=== PATIENT | male | born 1965 | race Caucasian/White ===

== ENCOUNTER 2017-02-15 13:03 | Inpatient (IN) | payer OTHER ==
[~2017-02-15] VITALS: Ht 165.1 cm; Wt 52.6 kg
--- NOTE | ~2017-02-15 | O ---
[place], [place] OPERATIVE NOTE NAME: JUAREZ ALBARADO [facility] [id number] UNIT #: [id number] ROOM: 405 DOCTOR: EDILBERTO BENNETT MD BIRTHDATE: [birth year] DOS: 02/16/2017 PREOPERATIVE DIAGNOSIS: Obstructed left proximal ureteral calculus. POSTOPERATIVE DIAGNOSIS: Obstructed left proximal ureteral calculus. PROCEDURE: Cystoscopy, retrograde pyelogram, placement of the ureteral stent. FINDINGS: A retrograde showed a complete visualization of the ureter with a filling defect in the left proximal at the UP junction suggestive for obstructive ureteral calculus. DESCRIPTION OF PROCEDURE: After obtaining satisfactory sedation, the patient was placed in lithotomy position. Genitalia was prepped and draped in sterile manner. A 21 ACMI scope was placed into bladder. Both ureteral orifices located in the normal location. The left orifice was then cannulated with a size 6 open-ended catheter. Contrast injected and entire ureter was identified and delineated with a filling defect in the left renal pelvis. The 0.35 guidewire was then placed into the ureter, which was deployed all the way up into the upper calyx. I then deployed size 6-Libyan 26 cm ureteral stent over the guidewire. The stent was seen very well pigtailing into the renal pelvis and the bladder. The patient tolerated the procedure very well. Guidewire, cystoscope was removed. He was then recovered from sedation and was transferred to recovery room in satisfactory condition. EDILBERTO BENNETT MD CM:OPRECORD:OPERATIVE NOTE [id number] EDILBERTO BENNETT MD 02/16/17 1549 interface
[~2017-02-15 13:03] MED LIST: ANAPROX DS550 MG PO; KEFLEX500 MG PO; MOTRIN800 MG PO; NO DAILY MEDS; TOBRADEX 0.1%-0.5 ML OPH; ULTRAM50 MG PO; VICODIN 5/500 505 MG PO; VOLTAREN75 MG PO
[2017-02-15 13:11] VITALS: BP 120/73
[2017-02-15 13:26] LABS: BILIRUBIN 1+ (NEGATIVE); BLOOD 3+ (NEGATIVE); CLARITY CLOUDY (CLEAR); COLOR YELLOW (YELLOW); GLUCOSE NEGATIVE (NEGATIVE); KETONE 3+ (NEGATIVE); LEUKO ESTERASE 3+ (NEGATIVE); NITRITE POSITIVE (NEGATIVE); PROTEIN 2+ (NEGATIVE); SPECIFIC GRAVITY 1.015 (1.005-1.030)
[2017-02-15 13:42] LABS: BACTERIA 4+; URINE REFLEX COMMENT YES (NO); WBC TNTC wbc/hpf (0-5)
[2017-02-15 14:03] LABS: BASO # 0.1 10*3/uL (0.0-0.1); BASO % 0.4 % (0.0-1.0); EOS # 0.1 10*3/uL (0.0-0.4); EOS % 0.3 % (1.0-4.0); HEMATOCRIT 46.1 % (42.0-52.0); IG # 0.1 10*3/uL (0.0-0.1); LYMPH # 1.5 10*3/uL (1.3-4.4); LYMPH % 8.2 % (27.0-41.0); MEAN CORPUSCULAR HGB 34.7 pg (27.0-31.0); MEAN CORPUSCULAR HGB CONC 34.7 g/dl (33.0-37.0); MEAN PLATELET VOLUME 9.1 fl (9.6-12.3); MONO # 1.3 10*3/uL (0.1-1.0); MONO % 7.4 % (3.0-9.0); NEUT # 14.9 10*3/uL (2.3-7.9); PLATELET COUNT AUTOMATED 218 10*3/uL (130-400); RED BLOOD COUNT 4.61 10*6/uL (4.50-5.90); RED CELL DISTRI WIDTH 13.3 % (0-14.5); WHITE BLOOD COUNT 17.9 10*3/uL (4.8-10.8)
[2017-02-15 14:18] LABS: ALBUMIN 3.9 gm/dl (3.1-4.5); ALKALINE PHOSPHATASE 66 U/L (45-117); BUN 7 mg/dl (7-24); CARBON DIOXIDE 28 mmol/L (21-32); CHLORIDE 98 mmol/L (98-107); EST GLOM FILT AFRICAN AMERICAN > 60 ml/min; GLUCOSE 91 mg/dL (65-99); POTASSIUM 4.5 mmol/L (3.5-5.1); SGOT/AST 15 IU/L (3-35); SGPT/ALT 15 U/L (12-78); SODIUM 134 mmol/L (136-145); TOTAL PROTEIN 8.2 gm/dL (6.4-8.2)
[2017-02-15 17:12] VITALS: BP 118/68
[2017-02-15 17:30] VITALS: BP 113/76
[2017-02-15 18:02] LABS: CPK 55 U/L (39-308)
[2017-02-15 18:04] LABS: CKMB < 0.5 ng/ml (0.5-3.6); TROPONIN I < 0.015 ng/ml (<0.045)
[2017-02-15 20:00] VITALS: BP 102/65
[2017-02-16] VITALS (9 sets, daily range): BP systolic 99–132; BP diastolic 59–89
[2017-02-16 00:46] LABS: CKMB < 0.5 ng/ml (0.5-3.6); CPK 44 U/L (39-308); TROPONIN I < 0.015 ng/ml (<0.045)
[2017-02-16 06:33] LABS: BASO # 0.1 10*3/uL (0.0-0.1); BASO % 0.3 % (0.0-1.0); EOS # 0.1 10*3/uL (0.0-0.4); EOS % 0.5 % (1.0-4.0); IG # 0.1 10*3/uL (0.0-0.1); LYMPH # 1.4 10*3/uL (1.3-4.4); LYMPH % 9.4 % (27.0-41.0); MEAN CELL VOLUME 100.5 fl (80.0-94.0); MEAN CORPUSCULAR HGB 33.7 pg (27.0-31.0); MEAN CORPUSCULAR HGB CONC 33.5 g/dl (33.0-37.0); MEAN PLATELET VOLUME 9.4 fl (9.6-12.3); MONO # 1.3 10*3/uL (0.1-1.0); MONO % 9.1 % (3.0-9.0); NEUT # 11.8 10*3/uL (2.3-7.9); NEUT % 80.2 % (47.0-73.0); PLATELET COUNT AUTOMATED 177 10*3/uL (130-400); RED BLOOD COUNT 3.83 10*6/uL (4.50-5.90); RED CELL DISTRI WIDTH 13.2 % (0-14.5); WHITE BLOOD COUNT 14.7 10*3/uL (4.8-10.8)
[2017-02-16 06:35] LABS: HEMATOCRIT 38.5 % (42.0-52.0); HEMOGLOBIN 12.9 g/dl (14.0-18.0)
[2017-02-16 06:44] LABS: CKMB < 0.5 ng/ml (0.5-3.6); CPK 43 U/L (39-308); TROPONIN I < 0.015 ng/ml (<0.045)
[2017-02-16 07:05] LABS: ALBUMIN 2.8 gm/dl (3.1-4.5); ALKALINE PHOSPHATASE 51 U/L (45-117); BILIRUBIN, TOTAL 0.5 mg/dl (0.2-1.0); BUN 9 mg/dl (7-24); CARBON DIOXIDE 24 mmol/L (21-32); CHLORIDE 101 mmol/L (98-107); CHOLESTEROL 101 mg/dL (<200); EST GLOM FILT AFRICAN AMERICAN > 60 ml/min; FREE T4 0.93 ng/dl (0.76-1.46); GLUCOSE 86 mg/dL (65-99); HDL CHOLESTEROL 64 mg/dl (40-60); LDL CHOLESTEROL 24 mg/dL (9-159); MAGNESIUM 1.6 mg/dL (1.5-2.1); PHOSPHOROUS 1.5 mg/dL (2.5-4.9); POTASSIUM 4.1 mmol/L (3.5-5.1); SGOT/AST 13 IU/L (3-35); SGPT/ALT 11 U/L (12-78); SODIUM 135 mmol/L (136-145); TOTAL PROTEIN 6.3 gm/dL (6.4-8.2); TRIGLYCERIDES 67 mg/dl (<150); VLDL CHOLESTEROL 13 mg/dL (6-40)
[2017-02-16 07:06] LABS: INTERNATIONAL NORM RATIO 1.1 (2.0-3.5); PROTHROMBIN TIME 11.4 SECONDS (9.0-12.4)
[2017-02-16 07:41] LABS: FOLIC ACID 7.11 ng/mL (>5.38)
[2017-02-16 08:26] LABS: VITAMIN D, 25-HYDROXY 5.8 ng/mL (30-100)
[2017-02-17] VITALS: BP 106/62
[2017-02-17 06:48] LABS: BASO # 0.1 10*3/uL (0.0-0.1); BASO % 0.5 % (0.0-1.0); EOS # 0.1 10*3/uL (0.0-0.4); EOS % 1.4 % (1.0-4.0); HEMATOCRIT 35.7 % (42.0-52.0); HEMOGLOBIN 12.1 g/dl (14.0-18.0); IG # 0.1 10*3/uL (0.0-0.1); LYMPH # 1.4 10*3/uL (1.3-4.4); LYMPH % 13.8 % (27.0-41.0); MEAN CELL VOLUME 100.8 fl (80.0-94.0); MEAN CORPUSCULAR HGB 34.2 pg (27.0-31.0); MEAN CORPUSCULAR HGB CONC 33.9 g/dl (33.0-37.0); MEAN PLATELET VOLUME 9.5 fl (9.6-12.3); MONO # 1.2 10*3/uL (0.1-1.0); MONO % 11.4 % (3.0-9.0); NEUT # 7.3 10*3/uL (2.3-7.9); NEUT % 72.3 % (47.0-73.0); PLATELET COUNT AUTOMATED 177 10*3/uL (130-400); RED BLOOD COUNT 3.54 10*6/uL (4.50-5.90); RED CELL DISTRI WIDTH 12.9 % (0-14.5); WHITE BLOOD COUNT 10.1 10*3/uL (4.8-10.8)
[2017-02-17 07:20] LABS: BUN 7 mg/dl (7-24); CARBON DIOXIDE 25 mmol/L (21-32); CHLORIDE 100 mmol/L (98-107); EST GLOM FILT AFRICAN AMERICAN > 60 ml/min; GLUCOSE 107 mg/dL (65-99); PHOSPHOROUS 1.9 mg/dL (2.5-4.9); POTASSIUM 3.7 mmol/L (3.5-5.1); SODIUM 134 mmol/L (136-145)
[2017-02-17 08:00] VITALS: BP 110/68
[2017-02-17 12:00] VITALS: BP 106/70
[2017-02-17 16:00] VITALS: BP 118/67
[2017-02-17 20:00] VITALS: BP 120/67; BP 121/70
[2017-02-18] VITALS: BP 115/68
[2017-02-18 08:00] VITALS: BP 108/70
[2017-02-18 12:00] VITALS: BP 116/70
[2017-02-18] MEDS ORDERED: VITAMIN D50000 I3 PO (13:10)
[2017-02-18] MEDS ORDERED: B12,B-12,B 12500 MC1 PO (13:10)
[2017-02-18] MEDS ORDERED: PERCOCET 325 MG1 TA2 PO (13:10)
[2017-02-18] MEDS ORDERED: LEVOFLOXACIN500 MG PO (13:10)
== END 2017-02-18 15:13 | disposition home or self-care (01) | DRG 871 ==
LOC: ED 13:03 → EDHOLD 16:49 → 4E 16:49
PROVIDERS: Emergency Medicine; Internal Medicine; Registered Nurse
PROC: 0T778DZ Dilation of Left Ureter with Intraluminal Device, Via Natural or Artificial Opening Endoscopic (ICD-10-PCS; principal; 2017-02-16)
DX: A41.9 Sepsis, unspecified organism (principal); E43 Unspecified severe protein-calorie malnutrition; R82.2 Biliuria; E87.1 Hypo-osmolality and hyponatremia; N13.4 Hydroureter; N39.0 Urinary tract infection, site not specified; Z68.1 Body mass index [BMI] 19.9 or less, adult; R31.9 Hematuria, unspecified; N20.0 Calculus of kidney; F10.10 Alcohol abuse, uncomplicated; R80.9 Proteinuria, unspecified; E55.9 Vitamin D deficiency, unspecified; E53.8 Deficiency of other specified B group vitamins; F17.210 Nicotine dependence, cigarettes, uncomplicated; N45.1 Epididymitis

== ENCOUNTER 2018-05-03 17:34 | Emergency (ER) | payer OTHER ==
[~2018-05-03] VITALS: Wt 52.6 kg
[~2018-05-03 17:34] MED LIST changes: +B12,B-12,B 12500 MC1 PO; +LEVOFLOXACIN500 MG PO; +PERCOCET 325 MG1 TA2 PO; +VITAMIN D50000 I3 PO
[2018-05-03] MEDS ORDERED: IBUPROFEN600 MG PO (20:29)
== END 2018-05-03 20:45 | disposition home or self-care (01) ==
LOC: ED 17:34
DX: S46.912A Strain of unspecified muscle, fascia and tendon at shoulder and upper arm level, left arm, initial encounter (principal); F17.200 Nicotine dependence, unspecified, uncomplicated; Z79.899 Other long term (current) drug therapy; X50.0XXA Overexertion from strenuous movement or load, initial encounter; Y93.89 Activity, other specified; Y92.099 Unspecified place in other non-institutional residence as the place of occurrence of the external cause; Y99.9 Unspecified external cause status

== ENCOUNTER 2019-10-23 10:16 | Inpatient (IN) | payer OTHER ==
[~2019-10-23] VITALS: Ht 162.5 cm; Wt 52.6 kg
[~2019-10-23 10:16] MED LIST changes: +IBUPROFEN600 MG PO
[2019-10-23 10:18] VITALS: BP 110/66
[2019-10-23 11:03] LABS: HEMATOCRIT 51.8 % (42.0-52.0); HEMOGLOBIN 17.8 g/dl (14.0-18.0); MEAN CORPUSCULAR HGB CONC 34.4 g/dl (33.0-37.0); MEAN PLATELET VOLUME 9.5 fl (9.6-12.3); PLATELET COUNT AUTOMATED 125 10*3/uL (130-400); RED BLOOD COUNT 5.08 10*6/uL (4.50-5.90); RED CELL DISTRI WIDTH 12.2 % (0-14.5); WHITE BLOOD COUNT 10.7 10*3/uL (4.8-10.8)
[2019-10-23 11:11] LABS: ACT PARTIAL THROMBO TIME 33.3 SECONDS (20.0-32.1)
[2019-10-23 11:18] LABS: ALBUMIN 3.9 gm/dl (3.1-4.5); ALKALINE PHOSPHATASE 52 U/L (45-117); BUN 25 mg/dl (7-24); CHLORIDE 104 mmol/L (98-107); CREATININE 2.34 mg/dL (0.70-1.30); LIPASE 123 U/L (73-393); POTASSIUM 3.8 mmol/L (3.5-5.1); SGOT/AST 36 IU/L (3-35); SGPT/ALT 28 U/L (12-78); SODIUM 133 mmol/L (136-145); TOTAL PROTEIN 8.7 gm/dL (6.4-8.2)
[2019-10-23 11:21] LABS: PLATELET SUFFICIENCY LOW (NORMAL); TOTAL CELLS COUNTED 100 #CELLS; TROPONIN I < 0.015 ng/ml (<0.045)
[2019-10-23 12:59] LABS: BILIRUBIN 1+ (NEGATIVE); BLOOD TRACE-INTACT (NEGATIVE); CLARITY CLOUDY (CLEAR); COLOR YELLOW (YELLOW); GLUCOSE NEGATIVE (NEGATIVE); KETONE NEGATIVE (NEGATIVE); LEUKO ESTERASE NEGATIVE (NEGATIVE); NITRITE POSITIVE (NEGATIVE); PH 5.5 (5.0-9.0); SPECIFIC GRAVITY >= 1.030 (1.005-1.030); UROBILINOGEN 0.2 E.U./dl (0.2-1.0)
--- NOTE | 2019-10-23 12:59 | NUR ---
PT DOES NOT TAKE ANY HOME MEDS.
[2019-10-23 13:27] VITALS: BP 93/57
[2019-10-23 13:41] LABS: BACTERIA 4+; HYALINE CAST TNTC; MUCOUS 3+
--- NOTE | 2019-10-23 15:09 | NUR ---
DR. WHITE NOTIFIED IN PERSON OF CONSULT.
[2019-10-23 20:00] VITALS: BP 104/69
[2019-10-24] VITALS: BP 115/68
--- NOTE | 2019-10-24 00:29 | NUR ---
Patient resting quietly with no c/o discomfort. Respirations easy and regular. Vital signs stable. No overt distress. GUILLERMO VALLEJO
--- NOTE | 2019-10-24 05:18 | NUR ---
JUAREZ ALBARADO [id number] Please refer to the physician's history and physical for past medical history, comorbid conditions, and allergies. Diagnosis: KAILEY INFLUENZA B Kvng Score: 21,LOW OR NO RISK WOUND DESCRIPTIONS: Wound Number: 1 Location of the wound: right thumb Type of wound: traumatic Thickness: Full Size: 1.5cm x 1.2cm x 0.1cm Tunneling: none Undermining: none Sinus Tract: none Presence of Exudate: none Amount: None Color: Red, brown Odor: None Periwound Skin Appearance: Erythema Wound edges: approximated Pain (associated with wound): tender to touch How does patient state this happened? pt stated he was bit by his rooster he stated the previous lab engineer warned him about that Surface the patient is resting on: Isoflex SKIN PREVENTION RECOMMENDATION: 1. Pressure redistribution support surface as appropriate 2. Elevate heels 3. Remove boots/TEDS every shift and reapply 4. Head of bed 30 degrees as tolerated 5. Assess nutrition and hydration 6. Manage moisture 7. Avoid the use of containment devices while in bed 8. Use absorptive products on surfaces limit layers of linens on bed 9. Turn and reposition every 1-2 hours in bed and every 1 hour in chair as tolerated 10. Weight shifts every 15 minutes while up in chair 11. Offloading with pillows or device to keep heels elevated off bed 12. Monitor skin at least every shift 13. Inspect under medical devices twice a day WOUND TREATMENT RECOMMENDATIONS: Cleanse right thumb with nss and apply bactroban ointment tid and cover with bandaid. Patient stated he will care for this area when he returns home like he did prior to coming here.
[2019-10-24 06:12] LABS: BASO % 0.5 % (0.0-1.0); EOS # 0.2 10*3/uL (0.0-0.4); EOS % 2.4 % (1.0-4.0); HEMATOCRIT 40.9 % (42.0-52.0); HEMOGLOBIN 13.7 g/dl (14.0-18.0); LYMPH % 15.2 % (27.0-41.0); MEAN CELL VOLUME 102.5 fl (80.0-94.0); MEAN CORPUSCULAR HGB 34.3 pg (27.0-31.0); MEAN CORPUSCULAR HGB CONC 33.5 g/dl (33.0-37.0); MEAN PLATELET VOLUME 9.7 fl (9.6-12.3); MONO # 0.7 10*3/uL (0.1-1.0); MONO % 10.2 % (3.0-9.0); NEUT # 4.8 10*3/uL (2.3-7.9); NEUT % 71.4 % (47.0-73.0); PLATELET COUNT AUTOMATED 103 10*3/uL (130-400); RED BLOOD COUNT 3.99 10*6/uL (4.50-5.90); RED CELL DISTRI WIDTH 12.2 % (0-14.5); WHITE BLOOD COUNT 6.7 10*3/uL (4.8-10.8)
[2019-10-24 06:41] LABS: ALBUMIN 2.7 gm/dl (3.1-4.5); ALKALINE PHOSPHATASE 42 U/L (45-117); BUN 20 mg/dl (7-24); CHLORIDE 113 mmol/L (98-107); CHOLESTEROL 88 mg/dL (<200); CREATININE 1.16 mg/dL (0.70-1.30); FREE T4 0.81 ng/dl (0.76-1.46); HDL CHOLESTEROL 37 mg/dl (40-60); LDL CHOLESTEROL 35 mg/dL (9-159); PHOSPHOROUS 2.8 mg/dL (2.5-4.9); SGOT/AST 25 IU/L (3-35); SGPT/ALT 20 U/L (12-78); SODIUM 141 mmol/L (136-145); TOTAL PROTEIN 6.2 gm/dL (6.4-8.2); TRIGLYCERIDES 81 mg/dl (<150); VLDL CHOLESTEROL 16 mg/dL (6-40)
[2019-10-24 07:42] VITALS: BP 116/68
--- NOTE | 2019-10-24 07:55 | NUR ---
VITALS STABLE. SANDIE. A&OX3. EQUAL PEST CONTROL APPLICATOR. HEART SOUNDS NORMAL. RHONCHI MID RIGHT LUNG, CLEARED WITH COUGH. LEFT LUNG CLEAR THROUGHOUT. ACTIVE BSX4, ABD NON TENDER NON DISTENDED, SOFT. PPP. <3 CAPILLARY REFILL. SKIN PINK WARM AND DRY. PT HAS AN UNOPENED SCABBED AREA ON RIGHT THUMB, NO DRAINAGE, NO SIGNS OF INFECTION. PT STATED "MY ROOSTER BIT ME". INSTRUCTED NOT TO PICK AT SCABS.IV SITE INTACT, PATENT, NO REDNESS OR SWELLING. NO COMPLAINTS OF PAIN AT THIS TIME. WILL CONTINUE TO JOSE TRUONG, SPJOSECC
[2019-10-24 08:09] LABS: VITAMIN D, 25-HYDROXY 10.3 ng/mL (30-100)
--- NOTE | 2019-10-24 10:00 | NUR ---
RIGHT THUMB CLEANED WITH NORMAL SALINE, MUPIROCIN 2% OINTMENT APPLIED TO RIGHT THUMB, COVERED WITH OPTIFOAM. TOLERATED WELL. WILL CONTINUE TO ASSESS. TOI SCOTT
--- NOTE | 2019-10-24 11:46 | NUR ---
PT WATCHING TV, WAITING FOR LUNCH TO ARRIVE. WILL CONTINUE TO ASSESS. JOSE VALDEZ, ISAIASCC
[2019-10-24 11:57] VITALS: BP 136/84
--- NOTE | 2019-10-24 13:16 | NUR ---
PATIENT IS SITTING
--- NOTE | 2019-10-24 13:17 | NUR ---
General Manager Food in to talk to patient. Patient states lives at HOME with FRIEND. There are NO steps in the home. Physician: NONE Pharmacy: [facility] [place] [facility]: NONE Patient's level of ADLs: INDEPENDENT Patient has working utilities: YES DME: NONE Follow-up physician's appointment after d/c: WILL FIND ONE AND MAKE APPOINTMENT AFTER DISCHARGE Does patient want to access PORTAL?: NO Discharge plan PT LIVES AT HOME WITH FRIEND AND IS INDEPENDENT IN HIS CARE. DENIES HE WILL HAVE ANY NEEDS ON DISCHARGE. PLANS TO RETURN HOME WHEN MEDICALLY STABLE. WILL CONTINUE TO FOLLOW. STATES HE WILL HAVE A RIDE HOME.. SHUKRI HICKS
[2019-10-24] MEDS ORDERED: TAMIFLU 75MG CA75 MG PO (14:03)
--- NOTE | 2019-10-24 14:45 | NUR ---
PT REQUESTED TO LEAVE AND SIGNED OUT AGAINST MEDICAL ADVICE. TAMIFLU PRESCRIPTION SENT TO PHARMACY. PATIENT AWARE. ARSH OLIVIA.
== END 2019-10-24 14:45 | disposition left against medical advice (07) | DRG 463 ==
LOC: ED 10:16 → 5E 12:43 → EDHOLD 12:43 → 5E 13:51
PROVIDERS: Nurse Practitioner Family; Registered Nurse; ADMIT Internal Medicine
DX: N30.01 Acute cystitis with hematuria (principal); J10.1 Influenza due to other identified influenza virus with other respiratory manifestations; N17.0 Acute kidney failure with tubular necrosis; F17.210 Nicotine dependence, cigarettes, uncomplicated; E87.1 Hypo-osmolality and hyponatremia; R80.9 Proteinuria, unspecified; R74.0 Nonspecific elevation of levels of transaminase and lactic acid dehydrogenase [LDH]; F10.10 Alcohol abuse, uncomplicated; I95.9 Hypotension, unspecified; Z53.29 Procedure and treatment not carried out because of patient's decision for other reasons; T39.395A Adverse effect of other nonsteroidal anti-inflammatory drugs [NSAID], initial encounter; Y92.89 Other specified places as the place of occurrence of the external cause

== ENCOUNTER 2020-06-24 11:38 | Emergency (ER) | payer OTHER ==
[~2020-06-24] VITALS: Ht 162.5 cm; Wt 52.6 kg
[~2020-06-24 11:38] MED LIST changes: +TAMIFLU 75MG CA75 MG PO
[2020-06-24] MEDS ORDERED: AMOXICILLIN500 M2 PO (12:30)
[2020-06-24] MEDS ORDERED: CLINDAMYCIN HC300 MG PO (12:30)
[2020-06-24] MEDS ORDERED: Motrin,Rufen800 MG PO (12:30)
== END 2020-06-24 12:47 | disposition home or self-care (01) ==
LOC: ED 11:38
DX: K02.9 Dental caries, unspecified (principal)

== ENCOUNTER 2021-05-13 11:32 | Emergency (ER) | payer OTHER ==
[~2021-05-13] VITALS: Ht 162.5 cm; Wt 52.6 kg
[~2021-05-13 11:32] MED LIST changes: +AMOXICILLIN500 M2 PO; +CLINDAMYCIN HC300 MG PO; +Motrin,Rufen800 MG PO
[2021-05-13 12:12] LABS: BASO # 0.1 10*3/uL (0.0-0.1); BASO % 0.6 % (0.0-1.0); EOS # 0.1 10*3/uL (0.0-0.4); EOS % 1.2 % (1.0-4.0); LYMPH # 0.9 10*3/uL (1.3-4.4); LYMPH % 10.6 % (27.0-41.0); MEAN CORPUSCULAR HGB 34.9 pg (27.0-31.0); MEAN CORPUSCULAR HGB CONC 34.9 g/dl (33.0-37.0); MEAN PLATELET VOLUME 9.4 fl (9.6-12.3); MONO # 0.4 10*3/uL (0.1-1.0); MONO % 5.2 % (3.0-9.0); NEUT % 82.2 % (47.0-73.0); PLATELET COUNT AUTOMATED 139 10*3/uL (130-400); RED CELL DISTRI WIDTH 12.4 % (0-14.5); WHITE BLOOD COUNT 8.5 10*3/uL (4.8-10.8)
[2021-05-13 12:28] LABS: ALBUMIN 3.3 gm/dl (3.1-4.5); ALKALINE PHOSPHATASE 67 U/L (45-117); BUN 16 mg/dl (7-24); CHLORIDE 100 mmol/L (98-107); CREATININE 1.18 mg/dL (0.70-1.30); LIPASE 75 U/L (73-393); POTASSIUM 3.8 mmol/L (3.5-5.1); SODIUM 126 mmol/L (136-145); TOTAL PROTEIN 7.2 gm/dL (6.4-8.2)
[2021-05-13 12:41] LABS: SGOT/AST 2350 IU/L (3-35); SGPT/ALT 1543 U/L (12-78)
[2021-05-13 13:17] LABS: BILIRUBIN 2+ (Negative); BLOOD 1+ (Negative); CLARITY Clear (Clear); COLOR Red (Yellow); GLUCOSE Negative (Negative); KETONE Trace (Negative); LEUKO ESTERASE 1+ (Negative); NITRITE Positive (Negative); PH 5.5 (4.5-8.0)
[2021-05-13 13:38] LABS: BACTERIA TRACE; RBC 16-20 rbc/hpf (0-2); WBC 0-2 wbc/hpf (0-5)
== END 2021-05-13 19:25 | disposition short-term general hospital (02) ==
LOC: ED 11:32
PROVIDERS: Physician Assistant
DX: N13.2 Hydronephrosis with renal and ureteral calculous obstruction (principal); R74.01 Elevation of levels of liver transaminase levels; F17.210 Nicotine dependence, cigarettes, uncomplicated; Z87.442 Personal history of urinary calculi; Z79.2 Long term (current) use of antibiotics; Z79.899 Other long term (current) drug therapy; Z98.890 Other specified postprocedural states

== ENCOUNTER 2021-11-11 16:11 | Observation (INO) | payer OTHER ==
[~2021-11-11] VITALS: Wt 52.6 kg
[2021-11-11 16:11] VITALS: BP 171/95
[2021-11-11 16:44] LABS: BASO # 0.1 10*3/uL (0.0-0.1); BASO % 1.2 % (0.0-1.0); EOS # 0.1 10*3/uL (0.0-0.4); EOS % 2.1 % (1.0-4.0); HEMATOCRIT 43.7 % (42.0-52.0); LYMPH # 1.4 10*3/uL (1.3-4.4); LYMPH % 21.1 % (27.0-41.0); MEAN CELL VOLUME 100.2 fl (80.0-94.0); MEAN CORPUSCULAR HGB 34.4 pg (27.0-31.0); MEAN CORPUSCULAR HGB CONC 34.3 g/dl (33.0-37.0); MEAN PLATELET VOLUME 9.1 fl (9.6-12.3); MONO # 0.7 10*3/uL (0.1-1.0); MONO % 10.8 % (3.0-9.0); NEUT # 4.3 10*3/uL (2.3-7.9); NEUT % 64.5 % (47.0-73.0); PLATELET COUNT AUTOMATED 177 10*3/uL (130-400); RED BLOOD COUNT 4.36 10*6/uL (4.50-5.90); RED CELL DISTRI WIDTH 12.3 % (0-14.5); WHITE BLOOD COUNT 6.6 10*3/uL (4.8-10.8)
[2021-11-11 16:56] LABS: ACT PARTIAL THROMBO TIME 28.7 SECONDS (20.0-32.1)
[2021-11-11 17:01] LABS: ALBUMIN 3.5 gm/dl (3.1-4.5); ALKALINE PHOSPHATASE 67 U/L (45-117); BUN 8 mg/dl (7-24); CHLORIDE 103 mmol/L (98-107); CREATININE 1.02 mg/dL (0.70-1.30); LIPASE 160 U/L (73-393); POTASSIUM 3.8 mmol/L (3.5-5.1); SGOT/AST 36 IU/L (3-35); SGPT/ALT 34 U/L (12-78); SODIUM 134 mmol/L (136-145); TOTAL PROTEIN 7.7 gm/dL (6.4-8.2)
[2021-11-11 17:10] VITALS: BP 170/94
[2021-11-11 18:00] VITALS: BP 170/90
[2021-11-11 19:41] VITALS: BP 160/92
[2021-11-12 00:22] VITALS: BP 137/70
[2021-11-12 03:55] VITALS: BP 156/93
[2021-11-12 05:14] LABS: ALBUMIN 3.1 gm/dl (3.1-4.5); BUN 9 mg/dl (7-24); CHLORIDE 104 mmol/L (98-107); CHOLESTEROL 150 mg/dL (<200); CREATININE 0.92 mg/dL (0.70-1.30); POTASSIUM 3.9 mmol/L (3.5-5.1); SGOT/AST 31 IU/L (3-35); SGPT/ALT 29 U/L (12-78); SODIUM 136 mmol/L (136-145); TOTAL PROTEIN 7.2 gm/dL (6.4-8.2); TRIGLYCERIDES 68 mg/dl (<150)
[2021-11-12 05:21] LABS: ALKALINE PHOSPHATASE 58 U/L (45-117); FREE T4 0.76 ng/dl (0.76-1.46); LDL CHOLESTEROL 38 mg/dL (9-159)
[2021-11-12 06:02] LABS: BASO # 0.1 10*3/uL (0.0-0.1); BASO % 1.7 % (0.0-1.0); EOS # 0.3 10*3/uL (0.0-0.4); EOS % 4.7 % (1.0-4.0); HEMATOCRIT 45.5 % (42.0-52.0); LYMPH # 1.8 10*3/uL (1.3-4.4); LYMPH % 30.8 % (27.0-41.0); MEAN CELL VOLUME 102.5 fl (80.0-94.0); MEAN CORPUSCULAR HGB 35.1 pg (27.0-31.0); MEAN CORPUSCULAR HGB CONC 34.3 g/dl (33.0-37.0); MEAN PLATELET VOLUME 9.7 fl (9.6-12.3); MONO # 0.8 10*3/uL (0.1-1.0); MONO % 13.6 % (3.0-9.0); NEUT # 2.8 10*3/uL (2.3-7.9); PLATELET COUNT AUTOMATED 179 10*3/uL (130-400); RED BLOOD COUNT 4.44 10*6/uL (4.50-5.90); RED CELL DISTRI WIDTH 12.4 % (0-14.5); WHITE BLOOD COUNT 5.7 10*3/uL (4.8-10.8)
[2021-11-12 07:40] VITALS: BP 139/78
[2021-11-12 07:41] LABS: VITAMIN D, 25-HYDROXY 16.1 ng/mL (30-100)
[2021-11-12 11:20] VITALS: BP 161/98
[2021-11-12] MEDS ORDERED: ZESTRIL40 MG PO (12:47)
[2021-11-12] MEDS ORDERED: LIPITOR80 MG PO (12:47)
[2021-11-12] MEDS ORDERED: Clopidogrel75 MG PO (12:47)
[2021-11-12] MEDS ORDERED: ASPIRIN81 M1 PO (12:47)
[2021-11-12 13:29] VITALS: BP 128/87
== END 2021-11-12 18:02 | disposition home or self-care (01) ==
LOC: ED 16:11 → EDHOLD 19:07
PROVIDERS: Emergency Medicine; Internal Medicine; ADMIT Student in an Organized Health Care Education/Training Program; ATTEND Student in an Organized Health Care Education/Training Program
DX: G45.9 Transient cerebral ischemic attack, unspecified (principal); R03.0 Elevated blood-pressure reading, without diagnosis of hypertension; R42 Dizziness and giddiness; D75.89 Other specified diseases of blood and blood-forming organs; R06.02 Shortness of breath; E87.1 Hypo-osmolality and hyponatremia; E55.9 Vitamin D deficiency, unspecified; R79.89 Other specified abnormal findings of blood chemistry; F10.10 Alcohol abuse, uncomplicated; Z72.0 Tobacco use; Z79.899 Other long term (current) drug therapy

== ENCOUNTER → 2023-01-07 | Outpatient (CLI) | payer OTHER ==
[~2023-01-07] MED LIST changes: +ASPIRIN81 M1 PO; +Clopidogrel75 MG PO; +LIPITOR80 MG PO; +ZESTRIL40 MG PO
[2023-01-07 11:12] LABS: BASO # 0.1 10*3/uL (0.0-0.1); BASO % 1.8 % (0.0-1.0); EOS # 0.2 10*3/uL (0.0-0.4); EOS % 3.5 % (1.0-4.0); HEMATOCRIT 41.3 % (42.0-52.0); LYMPH # 1.5 10*3/uL (1.3-4.4); LYMPH % 26.8 % (27.0-41.0); MEAN CELL VOLUME 99.3 fl (80.0-94.0); MEAN CORPUSCULAR HGB 34.6 pg (27.0-31.0); MEAN CORPUSCULAR HGB CONC 34.9 g/dl (33.0-37.0); MONO # 0.7 10*3/uL (0.1-1.0); NEUT # 3.2 10*3/uL (2.3-7.9); NEUT % 55.5 % (47.0-73.0); PLATELET COUNT AUTOMATED 204 10*3/uL (130-400); RED BLOOD COUNT 4.16 10*6/uL (4.50-5.90); RED CELL DISTRI WIDTH 13.1 % (0-14.5); WHITE BLOOD COUNT 5.7 10*3/uL (4.8-10.8)
[2023-01-07 11:30] LABS: ALKALINE PHOSPHATASE 63 U/L (46-116); BUN 5 mg/dl (9-23); CHLORIDE 102 mmol/L (98-107); CHOLESTEROL 146 mg/dL (<200); LDL CHOLESTEROL 30 mg/dL (9-159); POTASSIUM 4.4 mmol/L (3.4-5.1); SGPT/ALT 61 U/L (10-49); TOTAL PROTEIN 7.4 gm/dL (6.0-8.0); TRIGLYCERIDES 48 mg/dl (<150)
== END | disposition home or self-care (01) ==
LOC: LAB 10:30
PROVIDERS: Physical Therapist; ATTEND Family Medicine
DX: I10 Essential (primary) hypertension (principal); R73.9 Hyperglycemia, unspecified; I63.9 Cerebral infarction, unspecified; E55.9 Vitamin D deficiency, unspecified